=== PATIENT | female | born 1975 | race Two or more races ===

== ENCOUNTER → 2024-11-11 | Outpatient (CLI) | payer MEDICAID, SELFPAY ==
--- NOTE | 2024-11-11 12:30 | XR_ITS ---
Examination: Breast ultrasound complete, bilateral Date and time of exam: November 11, 2024 1240 hours INDICATIONS: Outside mammogram 15 mm mass 12:00 position right breast Technique: Real-time grayscale ultrasonographic imaging bilateral breasts, including all 4 quadrants as well as nipple retroareolar and axillary regions. Findings: Sonographic images right breast Multiple benign cysts, the largest in the 11:00 position 13 x 11 mm No solid nodules Sonographic images left breast Multiple benign cysts, the largest 12:00 position 9 x 8 mm No solid nodules IMPRESSION: BI-RADS Category 2: Benign findings
--- NOTE | 2024-11-11 13:30 | XR_ITS ---
Examination: Diagnostic digital mammography, bilateral Computer aided detection 3-D breast Tomosynthesis, bilateral Date and time of exam: November 11, 2024 at 1355 hours INDICATIONS: Outside mammogram September 19, 2024 12:00 right breast mass 11 mm Left breast multiple masses Technique: Nonmagnified MLO, CC views of the breasts to been obtained, reconstructed from 3-D Tomosynthesis images. R2 computer aided detection program utilized for evaluation of suspicious masses and/or abnormal calcifications. 3-D Tomosynthesis images obtained. Findings: The breasts are heterogeneously dense, which may obscure small masses Circumscribed 12:00 nodule right breast corresponding to 11:00 cyst described on right breast sonogram today Breast sonogram today bilateral does not demonstrate solid breast nodules Suspicious masses left breast are not depicted Impression: BI-RADS Category 2: Benign findings Return to yearly follow-up mammography.
== END | disposition home or self-care (01) ==
PROVIDERS: PCP Physician Assistant; Referring Provider Physician Assistant; Visit Provider Physician Assistant
DX: R92.323 Mammographic fibroglandular density, bilateral breasts (principal); N60.01 Solitary cyst of right breast; N60.02 Solitary cyst of left breast
CPT/HCPCS: 76641; 77062; 77066; G0279